=== PATIENT | male | born 1990 | race Caucasian/White ===

== ENCOUNTER 2016-09-04 07:39 | Emergency (ER) | payer OTHER ==
[2016-09-04 07:08] LABS: INFLUENZA A NEG (NEG); INFLUENZA B NEG (NEG)
[~2016-09-04 07:39] MED LIST: BENTYL20 MG PO; CELEXA PO; CIPRO PO; DICLOFENAC PO; FLAGYL PO; FLEXERIL10 MG PO; IMMODIUM1 MG/5 ML PO; LISINOPRIL PO; MOTRIN600 M1 PO; NAPROSYN250 M1 PO; NAPROXEN PO; NO MEDICATIONS; NORCO 5/325 TAB1 TAB PO; NORCO 7.5-3251 EACH PO; PHENERGAN W/CO120 ML PO; PRINIVIL20 M1; TRILEPTAL; VICODIN 5/1 TAB 5/50 PO; VISTARIL PO; VITAMIN C120 GM; ZITHROMAX PO; ZITHROMAX1 G/PKT PO; ZOFRAN PO; ZOFRANODT PO; ZOLOFT
== END 2016-09-04 08:12 | disposition home or self-care (01) ==
LOC: SED 07:39
PROVIDERS: Emergency Medicine
DX: J06.9 Acute upper respiratory infection, unspecified (principal)
CPT/HCPCS: 87651; 87804; 96372; 99283; J1885

== ENCOUNTER 2016-11-03 06:40 | Emergency (ER) | payer OTHER ==
[2016-11-03 06:02] LABS: BASOPHIL# 0.1 X10e3 (0-0.3); EOSINOPHIL# 0.3 X10e3 (0-0.7); EOSINOPHIL% 5.5 % (0.0-7.0); HEMATOCRIT 42.9 % (38.0-50.0); HEMOGLOBIN 14.3 gm/dL (13.0-16.0); LYMPHOCYTE# 2.5 X10e3 (1.0-3.5); LYMPHOCYTE% 40.4 % (17.0-45.0); MEAN CELL VOLUME 87.5 FL (83-96); MEAN CORPUSCULAR HEMOGLOBIN 29.2 PG (28-34); MEAN CORPUSCULAR HGB CONC 33.4 g/dL (30-36); MEAN PLATELET VOLUME 7.5 FL (6.5-11.5); MONOCYTE# 0.8 X10e3 (0-1.0); MONOCYTE% 12.6 % (3.0-12.0); NEUTROPHIL# 2.5 X10e3 (1.5-7.1); NEUTROPHIL% 40.5 % (40-75); PLATELET COUNT 256 X10e3 (140-420); RED BLOOD COUNT 4.91 X10e (3.90-5.60); RED CELL DISTRIBUTION WIDTH 13.7 % (11.0-15.5); WHITE BLOOD COUNT 6.2 X10e3 (4.0-10.5)
[2016-11-03 06:26] LABS: DIFF IND NO
[2016-11-03 06:44] LABS: ALBUMIN SERUM 4.3 g/dL (3.5-5.0); BILIRUBIN, DIRECT 0.1 mg/dL (0.0-0.2); BILIRUBIN,INDIRECT 0.5 mg/dL (0.0-0.9); BILIRUBIN,TOTAL 0.6 mg/dL (0.2-2.0); CALCIUM SERUM 8.7 mg/dL (8.4-10.2); POTASSIUM 3.8 mmol/L (3.5-5.1); PROTEIN TOTAL SERUM 7.3 g/dL (6.0-8.3)
[2016-11-03 07:46] LABS: URINE SOURCE CLEAN CATCH
[2016-11-03 07:50] LABS: URINE APPEARANCE CLEAR; URINE BILIRUBIN NEG (NEG); URINE BLOOD NEG (NEG); URINE COLOR YELLOW; URINE GLUCOSE NEG (NEG); URINE KETONE NEG (NEG); URINE LEUKOCYTE ESTERASE NEG (NEG); URINE NITRATE NEG (NEG); URINE PROTEIN NEG (NEG); URINE SPECIFIC GRAVITY 1.021 (1.003-1.035); URINE UROBILINOGEN 0.2 MG/DL (NEG)
[2016-11-03 07:56] LABS: CULTURE INDICATED? NO
== END 2016-11-03 09:20 | disposition home or self-care (01) ==
LOC: CED 06:40
PROVIDERS: Emergency Medicine
DX: R19.7 Diarrhea, unspecified (principal); R11.2 Nausea with vomiting, unspecified; Z88.2 Allergy status to sulfonamides; Z88.8 Allergy status to other drugs, medicaments and biological substances
CPT/HCPCS: 36415; 80048; 80076; 81003; 83690; 85025; 96361; 96374; 99284; J2405

== ENCOUNTER 2016-11-24 05:48 | Emergency (ER) | payer OTHER | END 2016-11-24 07:50 | disposition left against medical advice (07) | LOC: CED 05:48 → CFTX 07:50 → CED 09:21 | DX: Z53.21 Procedure and treatment not carried out due to patient leaving prior to being seen by health care provider (principal) ==